=== PATIENT | female | born 1990 | race Caucasian/White ===

== ENCOUNTER 2020-10-01 06:00 | Inpatient (IN) ==
[2020-10-01] MEDS ORDERED: Ondansetron 4 MG/2 ML VIAL IVP PRN (06:20)
[2020-10-01] MEDS ORDERED: Lidocaine 1% 20 ML MDV INFILT PRN (06:20)
[2020-10-01] MEDS ORDERED: Naloxone 0.4 MG/ML INJ IVP PRN (06:20)
[2020-10-01] MEDS ORDERED: Famotidine 20 MG/2 ML VIAL IVP PRN (06:20)
[2020-10-01] MEDS ORDERED: Metoclopramide 10 MG/2 ML VIAL IVP PRN (06:20)
[2020-10-01] MEDS ORDERED: *HR* Nalbuphine 10 MG/ML AMPUL IV PRN (06:20)
[2020-10-01] MEDS ORDERED: Ringers Solution, Lactated 1,000 ML IVC SCH (06:30)
[2020-10-01] MEDS ORDERED: EPHEDrine 50 MG/ML VIAL IVP PRN (07:13)
[2020-10-01] MEDS ORDERED: Epidural Premix (fent/bupiv) 110 ML EP SCH (07:15)
[2020-10-01 07:19] LABS: Basophils # 0.1 K/mcL (0.0-0.2); Basophils % 1.1 %; Eosinophils # 0.1 K/mcL (0.0-0.6); Hematocrit 36.9 % (35.3-44.9); Hemoglobin 12.2 g/dL (11.5-15.4); Immature Granulocytes % 4.3 % (0-4); Lymphocytes # 1.5 K/mcL (0.6-4.6); Lymphocytes % 15.7 %; Mean Corpuscular HGB Conc 33.1 g/dL (31.6-35.5); Mean Corpuscular Hemoglobin 30.7 pg (28.0-33.3); Mean Corpuscular Volume 92.7 fL (83.0-100.0); Mean Platelet Volume 10.4 fL (9.4-12.4); Monocytes # 1.1 K/mcL (0.0-1.3); Neutrophils # 6.4 K/mcL (1.6-8.9); Platelet Count 233 K/mcL (140-400); Red Blood Count 3.98 M/mcL (3.82-4.97); Red Cell Distribution Width 13.5 % (11.5-14.5); Segmented Neutrophils % 66.9 %; White Blood Count 9.6 K/mcL (4.3-11.1)
[2020-10-01] MEDS: Oxytocin 20 units/ LR 1000 mL 20 UNIT/1,000 ML BAG IVC SCH ×2 (08:02→19:47)
[2020-10-01 11:17] LABS: Amphetamine Screen,Urine Negative ng/mL (Cutoff=1000); Barbiturate Screen,Urine Negative ng/mL (Cutoff=200); Benzodiazepines Screen,Urine Negative ng/mL (Cutoff=200); Cannabinoid Screen,Urine Negative ng/mL (Cutoff = 50); Cocaine Screen,Urine Negative ng/mL (Cutoff= 300); Opiate Screen,Urine Negative ng/mL (Cutoff=300); Phencyclidine Screen,Urine Negative ng/mL (Cutoff=25)
[2020-10-01] MEDS ORDERED: Ropivacaine/PF 0.2% 20 ML VIAL ONE (11:36)
[2020-10-01] MEDS ORDERED: *HR* Ropivacaine/PF 0.5% 20 ML VIAL ONE (15:59)
[2020-10-01] MEDS ORDERED: Oxytocin 20 units/ LR 1000 mL 20 UNIT/1,000 ML BAG IVC SCH (21:06)
[2020-10-01] MEDS ORDERED: Oxytocin 20 units/ LR 1000 mL 20 UNIT/1,000 ML BAG IVC ONE (21:06)
[2020-10-01] MEDS ORDERED: Acetaminophen 325 MG TABLET PO PRN (21:06)
[2020-10-01] MEDS ORDERED: Benzocaine/Menthol 56 GM AEROSOL SPRAY TP PRN (21:06)
[2020-10-01] MEDS ORDERED: Lanolin 7 G OINT...G. TP PRN (22:07)
[2020-10-01] MEDS: Ibuprofen 600 MG TABLET PO PRN (22:39)
[2020-10-02 05:04] LABS: Basophils # 0.1 K/mcL (0.0-0.2); Basophils % 0.4 %; Eosinophils # 0.1 K/mcL (0.0-0.6); Eosinophils % 0.5 %; Hematocrit 32.7 % (35.3-44.9); Immature Granulocytes % 1.5 % (0-4); Lymphocytes # 1.5 K/mcL (0.6-4.6); Lymphocytes % 9.9 %; Mean Corpuscular HGB Conc 33.6 g/dL (31.6-35.5); Mean Corpuscular Hemoglobin 30.7 pg (28.0-33.3); Mean Corpuscular Volume 91.3 fL (83.0-100.0); Mean Platelet Volume 10.4 fL (9.4-12.4); Monocytes # 1.1 K/mcL (0.0-1.3); Monocytes % 7.2 %; Platelet Count 188 K/mcL (140-400); Red Blood Count 3.58 M/mcL (3.82-4.97); Red Cell Distribution Width 13.1 % (11.5-14.5); Segmented Neutrophils % 80.5 %
[2020-10-02 05:05] LABS: Neutrophils # 12.2 K/mcL (1.6-8.9); White Blood Count 15.2 K/mcL (4.3-11.1)
[2020-10-02] MEDS: Ibuprofen 600 MG TABLET PO PRN ×2 (08:40→14:34)
[2020-10-02] MEDS ORDERED: Prenatal Vit/FA 1 EACH TABLET PO SCH (09:00)
[2020-10-02 14:53] VITALS: BP 114/74
== END 2020-10-02 19:45 | disposition home or self-care (01) | DRG 807 ==
LOC: 1NENULAB 06:06 → 1NENUOBS 22:50
PROVIDERS: ADMIT Obstetrics & Gynecology; ATTEND Obstetrics & Gynecology